=== PATIENT | male | born 1995 | race Caucasian/White ===

== ENCOUNTER → 2017-10-02 | Outpatient (CLI) | payer SELFPAY ==
--- NOTE | 2017-10-02 12:40 | KCIC ---
3 views right wrist and 3 views right hand dated 10/02/2017. No comparison available. CLINICAL INDICATION: Pain after injury 2 days ago. FINDINGS: 3 views right wrist show normal bony alignment. No displaced fracture. There is a circumscribed radiolucent focus within the lunate bone, consistent with cyst. No destructive changes or periostitis. 3 views right hand show normal bony alignment. No displaced fracture. No acute osseous or articular abnormality. IMPRESSION: 1. No acute radiographic abnormality. 2. Nonspecific cystic focus of the lunate. Electronically signed by: Alejandro Back MD (10/02/2017 12:37 PM) [facility]
--- NOTE | 2017-10-02 12:40 | KCIC ---
3 views right wrist and 3 views right hand dated 10/02/2017. No comparison available. CLINICAL INDICATION: Pain after injury 2 days ago. FINDINGS: 3 views right wrist show normal bony alignment. No displaced fracture. There is a circumscribed radiolucent focus within the lunate bone, consistent with cyst. No destructive changes or periostitis. 3 views right hand show normal bony alignment. No displaced fracture. No acute osseous or articular abnormality. IMPRESSION: 1. No acute radiographic abnormality. 2. Nonspecific cystic focus of the lunate. Electronically signed by: Alejandro Back MD (10/02/2017 12:37 PM) [facility]
== END | disposition home or self-care (01) ==
LOC: KCIC 12:08
PROVIDERS: ATTEND Family Medicine
DX: M79.641 Pain in right hand (principal); M25.531 Pain in right wrist
CPT/HCPCS: 73110; 73130

== ENCOUNTER → 2021-03-05 | Outpatient (CLI) | payer BC ==
[~2021-03-05] MED LIST: ACET325T9 PO; ALBU2.5V8 IH
--- NOTE | 2021-03-08 12:01 | NUR ---
IP: Notified warehouse supervisor 3rd shift, Sridevi Mora on 03/07/21 of pt's positive covid test. Requested she notify Dr. Rebollar. she did confirm pt is a Monday case and would notify Dr. Rebollar.
== END ==
LOC: LAB 10:02
PROVIDERS: ATTEND Family Medicine
DX: U07.1 COVID-19 (principal)
CPT/HCPCS: U0003; U0005

== ENCOUNTER 2021-04-15 06:35 | Day surgery (SDC) | payer BC ==
[~2021-04-15] VITALS: Ht 175.3 cm; Wt 75.0 kg
[~2021-04-15 06:35] MED LIST changes: +HYDROmorphone 2 MG/ML INJ. IVP PRN; +IBUP-1060 PO; +IV RINGERS,LACTATED 1000ML 1,000 ML IV SCH; +MORPHINE SULFATE 2 MG/ML INJ. IVP PRN; +PROCHLORPERAZINE 10 MG/2 ML VIAL. IVP PRN; +ceFAZolin SODIUM IV Push 1 GM VIAL. IVP ONE; +fentaNYL PF VIAL 100 MCG/2 ML VIAL IVP PRN
[2021-04-15 06:55] VITALS: BP 146/68
[2021-04-15] MEDS ORDERED: PROPOFOL 10 MG/ML (20ML) VIAL. IV ONE (07:15)
[2021-04-15] MEDS ORDERED: SUCCINYLCHOLINE 200 MG/10 ML VIAL. ONE (07:17)
[2021-04-15] MEDS ORDERED: fentaNYL PF VIAL 100 MCG/2 ML VIAL ONE ×3 (07:29→09:39)
[2021-04-15] MEDS ORDERED: BUPIVACAINE-EPI 0.25%-1:200000 MPF 30 ML VIAL. ONE (07:30)
--- NOTE | 2021-04-15 08:25 | PDOC1 ---
History and Physical Date of Admission Date of Admission DATE: 04/15/21 TIME: 08:22 History of Present Illness History of Present Illness The patient is a 25-year-old male who was initially referred due to recurrent cyst of the left inguinal region. He states that this has intermittently grown in size and then drained spontaneously. This has required antibiotic treatment in the past. He was referred due to its recurrence. Also in the last couple of days he noticed some pain and swelling of the right gluteus and was placed on antibiotics for that. Past Medical History Past Medical History He denies Past Surgical History Past Surgical History He denies Social History Smoke: No Current Medications Current Medications Current Medications Fentanyl Citrate (Fentanyl 2ml Vial) 25 mcg PRN Q5MIN PRN IVP MILD PAIN 1-3; Start 04/15/21 at 06:00; Stop 04/16/21 at 05:59 Fentanyl Citrate (Fentanyl 2ml Vial) 50 mcg PRN Q5MIN PRN IVP MODERATE PAIN 4- 6; Start 04/15/21 at 06:00; Stop 04/16/21 at 05:59 Morphine Sulfate (Morphine Sulfate) 1 mg PRN Q10MIN PRN IVP SEVERE PAIN 7-10; Start 04/15/21 at 06:00; Stop 04/16/21 at 05:59 Ringer's Solution 1,000 ml @ 30 mls/hr Q24H IV ; Start 04/15/21 at 06:00; Stop 04/15/21 at 17:59 Hydromorphone HCl (Dilaudid) 0.5 mg PRN Q10MIN PRN IVP SEVERE PAIN 7-10, 2nd CHOICE; Start 04/15/21 at 06:00; Stop 04/16/21 at 05:59 Prochlorperazine Edisylate (Compazine) 5 mg PACU PRN PRN IVP NAUSEA, MRX1; Start 04/15/21 at 06:00; Stop 04/16/21 at 05:59 Cefazolin Sodium (Ancef) 1 gm STK-MED ONCE IVP ; Start 04/15/21 at 06:05; Stop 04/15/21 at 06:05; Status DC Propofol (Diprivan) 200 mg STK-MED ONCE IV ; Start 04/15/21 at 07:15; Stop 04/15/21 at 07:15; Status DC Succinylcholine Chloride (Anectine) 200 mg STK-MED ONCE .ROUTE ; Start 04/15/21 at 07:17; Stop 04/15/21 at 07:17; Status DC Fentanyl Citrate (Fentanyl 2ml Vial) 100 mcg STK-MED ONCE .ROUTE ; Start 04/15/21 at 07:29; Stop 04/15/21 at 07:29; Status DC Fentanyl Citrate (Fentanyl 2ml Vial) 100 mcg STK-MED ONCE .ROUTE ; Start 04/15/21 at 07:29; Stop 04/15/21 at 07:29; Status DC Bupivacaine HCl/ Epinephrine Bitart (Sensorcaine-Epi 0.25%-1:035335 Mpf) 30 ml STK-MED ONCE .ROUTE ; Start 04/15/21 at 07:30; Stop 04/15/21 at 07:31; Status DC Active Scripts Active Reported Ibuprofen 800 Mg Tablet 800 Mg PO PRN Q6HRS PRN Proair Hfa Inhaler (Albuterol Sulfate) 8.5 Gm Hfa.aer.ad 2 Puff IH PRN Q4-6HRS PRN 21 Days Tylenol (Acetaminophen) 325 Mg Tablet 325 Mg PO PRN Q4-6HRS PRN Allergies Allergies: Coded Allergies: No Known Drug Allergies (Unverified , 04/15/21) ROS General: No: Chills, Night Sweats, Fatigue, Malaise, Appetite, Other PSYCHOLOGICAL ROS: No: Anxiety, Behavioral Disorder, Concentration difficultie, Decreased libido, Depression, Disorientation, Hallucinations, Hostility, Irritablity, Memory difficulties, Mood Swings, Obsessive thoughts, Physical abuse, Sexual abuse, Sleep disturbances, Suicidal ideation, Other Eyes: No Blurry vision, No Decreased vision, No Double vision, No Dry eyes, No Excessive tearing, No Eye Pain, No Itchy Eyes, No Loss of vision, No Photophobia, No Scotomata, No Uses contacts, No Uses glasses, No Other HEENT: No: Heacaches, Visual Changes, Hearing change, Nasal congestion, Nasal discharge, Oral lesions, Sinus pain, Sore Throat, Epistaxis, Sneezing, Snoring, Tinnitus, Vertigo, Vocal changes, Other ALLERGY AND IMMUNOLOGY: No: Hives, Insect Bite Sensitivity, Itchy/Watery Eyes, Nasal Congestion, Post Nasal Drip, Seasonal Allergies, Other Hematological and Lymphatic: No: Bleeding Problems, Blood Clots, Blood Transfusions, Brusing, Night Sweats, Pallor, Swollen Lymph Nodes, Other Respiratory: No: Cough, Hemoptysis, Orthopnea, Pleuritic Pain, Shortness of breath, SOB with excertion, Sputum Changes, Stridor, Tachypnea, Wheezing, Other Cardiovascular: No Chest Pain, No Palpitations, No Orthopnea, No Paroxysmal Noc. Dyspnea, No Edema, No Lt Headedness, No Other Gastrointestinal: No Nausea, No Vomiting, No Abdominal Pain, No Diarrhea, No Constipation, No Melena, No Hematochezia, No Other Genitourinary: No Dysuria, No Frequency, No Incontinence, No Hematuria, No Retention, No Discharge, No Urgency, No Pain, No Flank Pain, No Other, No , No , No , No , No , No , No Physical Exam General: Alert, Oriented X3, Cooperative, No acute distress HEENT: Atraumatic Lungs: Clear to auscultation Heart: RRR Abdomen: Soft, No tenderness Male Genitals Exam: other (Left inguinal region just lateral to the scrotum there is a probable epidermal cyst with small amount of drainage) Skin: Other (Right gluteus shows an area of fluctuance with mild induration) Neuro: Normal gait, Normal speech Psych/Mental Status: Mental status NL Vitals Vitals Vital Signs Date Time Temp Pulse Resp B/P (MAP) Pulse Ox O2 Delivery O2 Flow Rate FiO2 04/15/21 06:55 98.2 68 20 98 98.2 04/15/21 06:52 146/68 Room Air VTE Prophylaxis Ordered VTE Prophylaxis Devices: No VTE Pharmacological Prophylaxi: No Assessment/Plan Assessment/Plan Left inguinal cyst, right gluteal abscess. Plan is to proceed with excision of left inguinal cyst and incision and drainage of the right gluteal abscess. The details and risks of surgery were discussed with the patient. He understands and would like to proceed. Justifications for Admission Other Justification FREDY ANTONIO MD Apr 15, 2021 08:25
[2021-04-15] MEDS ORDERED: GLYCOPYRROLATE 1 MG/5 ML VIAL. ONE (08:39)
[2021-04-15] MEDS ORDERED: ONDANSETRON PF 4 MG/2 ML VIAL. ONE (08:54)
[2021-04-15] MEDS ORDERED: DEXAMETHASONE SOD PHOS 4 MG/ML VIAL ONE (08:54)
--- NOTE | 2021-04-15 09:34 | PDOC4 ---
Operative Note Operative Note Operative Note: Preoperative Diagnosis: Left groin cyst, right gluteal abscess, Postoperative Diagnosis: Same Procedure: Excision of left groin cyst 2.5 X 1.5 cm, incision and drainage of right gluteal abscess, subcutaneous tissue Surgeon: Smooth Detective Precinct: SHANNON Gamble Anesthesia: General EBL: 10 mL Specimen: Cultures to microbiology, groin cyst to pathology Drains: None Complications: None Indication: The patient is a 25-year-old male who presented with a symptomatic left groin cyst. Recently is also developed a small focal abscess of the right gluteus. The plan is to proceed with excision of the cyst and incision and drainage of the right gluteal abscess. The risks of surgery were discussed which include bleeding, infection, wound healing problems, recurrence, pain, anesthetic risk, scar tissue, potential need for additional surgery procedure. He understands and would like to proceed. Description: The patient was taken the operating room and placed supine on the operating table. General anesthesia was performed. The left groin was shaved and prepped with ChloraPrep and draped in a standard surgical manner. An elliptical incision was made around the middle portion of the epidermal cyst. Sharp dissection was used for full-thickness excision of the involved tissue. The deeper tissues were fairly inflamed and gelatinous in nature. There was no purulent fluid. The excised specimen measured 2-1/2 x 1-1/2 cm and was sent to pathology for evaluation. The inflamed granulation base was curetted with a scalpel. Hemostasis was achieved with cautery. The skin was approximated with 4-0 Monocryl suture. A dressing was then applied. He was then rolled on his side exposing the right gluteus. The skin was prepped with Betadine and draped with sterile towels. A stab incision was made in the middle fluctuant area with return of a small amount of purulent fluid. Cultures were obtained and sent to microbiology. The wound was then packed with sterile gauze and a dressing was applied. The patient tolerated the procedure well and was sent to the recovery room in stable condition. At the end the case all counts were correct. FREDY ANTONIO MD Apr 15, 2021 09:34
[2021-04-15] MEDS ORDERED: HYDR-2761 PO (09:37)
--- NOTE | 2021-04-15 09:39 | DISCH ---
DISCHARGE INSTRUCTIONS Condition on Discharge Condition on Discharge: Unstable Activity After Discharge Activity Instructions for Disc: Other, see below (No driving while taking pain meds) Diet after Discharge Diet after Discharge: Regular Wound Incision Care Wound/Incision Care: Other, see below (keep groin dressing clean and dry X 72 hours, may then remove and shower; remove gluteal packing and dressing tomorrow and recover daily with clean gauze) Follow-Up Follow up with: Dr Antonio in 2 weeks in office, call for appt [phone] FREDY ANTONIO MD Apr 15, 2021 09:39
[2021-04-15] MEDS: fentaNYL PF VIAL 100 MCG/2 ML VIAL IVP PRN ×2 (09:43→09:53)
[2021-04-15] MEDS ORDERED: HYDROcodone/APAP 5/325MG 1 TAB TABLET PO ONE (10:00)
[2021-04-15 10:05] VITALS: BP 156/85
--- NOTE | 2021-04-16 15:08 | PATHOLOGY ---
[facility] Accession Number: [id number] . 01 Material submitted: . groin - LEFT GROIN CYST. Modifiers: left . 02 Diagnosis: Skin and underlying soft tissue, left groin mass excision: - Consistent with ruptured and inflamed epidermal inclusion cyst, showing marked acute and chronic inflammation and focal foreign body giant cell reaction. (JPM:[facility]; 04/16/2021) [facility] 04/16/2021 0957 Local . 02 Comment: There is no evidence of malignancy. (JPM:[facility]; 04/16/2021) . 02 Electronically signed: . Mingo Sanchez MD, Pathologist NPI- [id number] . 01 Gross description: . The specimen is received in formalin, labeled "[place], left groin cyst". Received is a vaguely linear excision of pale pulido skin with attached underlying shaggy soft tissue measuring 2.0 x 0.4 x 1.6 cm. The surgical margin is inked. The specimen is intact and submitted entirely in cassette A1.([facility]; 04/15/2021) . [facility] 04/15/2021 1703 Local . 02 Pathologist provided ICD-10: R22.9 . 02 CPT . 669919 Specimen Comment: A courtesy copy of this report has been sent to [phone], [phone] Specimen Comment: [id number] Specimen Comment: Report sent to / DR MARES Specimen Comment: A duplicate report has been generated due to demographic updates. Performed at: [address], [place], [place] [id number] MD Zeeshan Galdamez MD Phone: [phone] Performed at: 02 [facility] [address] [place], [place] [id number] MD Mingo Sanchez MD Phone: [phone]
== END 2021-04-15 10:30 | disposition home or self-care (01) ==
LOC: SURG 06:35
PROVIDERS: ATTEND Surgery
DX: L02.31 Cutaneous abscess of buttock (principal); R19.09 Other intra-abdominal and pelvic swelling, mass and lump; J45.909 Unspecified asthma, uncomplicated; Z87.891 Personal history of nicotine dependence; Z79.899 Other long term (current) drug therapy; Z98.890 Other specified postprocedural states; Z72.89 Other problems related to lifestyle
CPT/HCPCS: 11403; 87075; 87077; 87186; A4930; A6402; J0330; J0690; J1100; J2405; J2704; J3010; J3490